=== PATIENT | male | born 1955 | race Caucasian/White ===

== ENCOUNTER 2021-09-05 13:00 | Outpatient (RCR) | payer MEDICARE, SELFPAY ==
--- NOTE | 2021-09-11 13:30 | PTOPEVAL ---
Thank you for referring Stephen Ortiz to [facility] [place] The patient is scheduled to be seen for therapy? ____x/week for ___ weeks. Please review, sign, date and return this plan of care JOSE F. I agree with and certify that the following plan of care is medically necessary. 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 he reports finally he was doen messing with it and had the shoulder replaced in a reverse approach. he reports he has gotten out of the sling yesterday. he reports he is using the arm quite significantly at home. he reports he is limiting his lifting. Prior Level of Function Comments Additional Prior Level of Function prior to surgery, he was Comments unable to lift above his head. Pain Assessment Timing of Pain Assessment Timing of Pain Assessment Assessment Pain Scale Pain Scale Used Numeric (1 - 10) Self Report Pain Assessment Right Shoulder(s) Reported Pain Level 3 Pain Frequency Acute,Continuous Greatest Pain Intensity 5 Pain Score Pain Score 3: Self Report Interventions Used Interventions Used By Clinicians Education,Exercise,Heat,Ice, Rest Upper Extremity Range of Motion Scapular/ Shoulder Range of Motion Right Shoulder Flexion - Active 110 Shoulder Flexion - Passive 130 Shoulder Medial Rotation - Active 50 Shoulder Lateral Rotation - Active 40 Left Shoulder Flexion - Active 160 Shoulder Flexion - Passive 165 Shoulder Medial Rotation - Active 75 Shoulder Medial Rotation - Active functional reach to
--- NOTE | 2021-12-16 14:56 | PCPTNOTE ---
Mr. Ortiz attended a total of 8 treatment sessions from 09/04/21 to 10/02/21. He has failed to return to the clinic and has not contacted the clinic. Refer to his last daily note for discharge status.
== END 2021-10-02 23:59 | disposition home or self-care (01) ==
LOC: CHSPT 13:00
DX: Z96.611 Presence of right artificial shoulder joint (principal)
CPT/HCPCS: 97014; 97110; 97161; G0283

== ENCOUNTER 2023-10-20 11:23 | Emergency (ER) | payer MEDICARE, SELFPAY ==
--- NOTE | ~2023-10-20 | XR_ITS ---
EXAMINATION: XR lumbar spine 2-3V DATE: 10/20/2023 11:55 INDICATION: Posttraumatic low back pain, right greater than left. TECHNIQUE: Anteroposterior and lateral views of the lumbar spine, and cone-down lateral view of the l umbosacral junction were obtained. COMPARISON: None. FINDINGS: Alignment is normal. Vertebral body heights are normal. No fractures identified. Mild disc height los s with moderate-sized degenerative endplate osteophytes at L1-L2. There are additional endplate osteo phytes without significant disc height loss at L2-L3 and L3-L4. Moderate to severe lower lumbar facet osteoarthritis. Mild osteoarthritis at the bilateral sacroiliac joints. IMPRESSION: 1. Mild lumbar spondylosis including moderate to severe lower lumbar facet osteoarthritis. No acute o sseous abnormality. Reviewed, dictated and finalized at location B. IMPRESSION: 1. Mild lumbar spondylosis including moderate to severe lower lumbar facet oste oarthritis. No acute osseous abnormality.
[2023-10-20 11:23] VITALS: BP 128/94; PULSE 75; RESP 17; TEMP 37; O2SAT 97
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
[2023-10-20] MEDS: ORPHENADRINE CITRATE 30 MG/ML 2 ML VIAL 60 MG IM (11:59)
[2023-10-20] MEDS: KETOROLAC (*BKC) 60 MG/2 ML VIAL IM (11:59)
[2023-10-20 12:46] VITALS: BP 150/88; PULSE 70; RESP 17; TEMP 36.9; O2SAT 97
== END 2023-10-20 12:46 | disposition home or self-care (01) ==
PROVIDERS: Emergency Provider Emergency Medicine
DX: S39.012A Strain of muscle, fascia and tendon of lower back, initial encounter (principal); V89.2XXA Person injured in unspecified motor-vehicle accident, traffic, initial encounter
CPT/HCPCS: 72100; 96372; 99284; J1885; J2360